=== PATIENT | male | born 1980 | race Hispanic/Latino ===

== ENCOUNTER 2020-04-20 18:40 | Emergency (ER) | payer SELFPAY ==
[2020-04-20] MEDS ORDERED: Acetaminophen 500 MG TAB ONE (19:13)
[2020-04-20] MEDS ORDERED: Cephalexin 250 MG CAP ONE (19:13)
[2020-04-20] MEDS ORDERED: Adacel (T-DAP) 0.5 ML SYRINGE ONE (19:14)
[2020-04-20] MEDS ORDERED: Sulfameth/Trimethoprim DS 800-160mg TAB ONE (19:14)
== END 2020-04-20 19:51 | disposition home or self-care (01) ==
LOC: ERS 18:40
DX: L02.811 Cutaneous abscess of head [any part, except face] (principal); Z87.891 Personal history of nicotine dependence
CPT/HCPCS: 10060; 90471; 90715